=== PATIENT | male | born 1935 | race Hispanic/Latino ===

== ENCOUNTER → 2017-08-10 | Outpatient (CLI) | payer OTHER, MEDICARE ==
[~2017-08-10] MED LIST: AMLO10TA2 PO; CARV25TA PO; DRON400T2 PO; ESOM20CA39 PO; GABA-531 PO; GLIP5TAB11 PO; HYDR100T27 PO; ISOS60TA4 PO; NITR0.4T SL
== END | disposition home or self-care (01) ==
LOC: RAH 12:32
PROVIDERS: ATTEND Physical Medicine & Rehabilitation
DX: M25.511 Pain in right shoulder (principal)
CPT/HCPCS: 73030